=== PATIENT | female | born 1995 | race Two or more races ===

== ENCOUNTER 2016-06-09 17:18 | Emergency (ER) | payer OTHER ==
[2016-06-09 18:24] LABS: HCG,QUALITATIVE URINE NEGATIVE
[2016-06-09 19:13] LABS: URINE BILIRUBIN NEGATIVE (NEGATIVE); URINE BLOOD 3+ (NEGATIVE); URINE GLUCOSE (UA) NEGATIVE (NEGATIVE); URINE LEUKOCYTE ESTERASE NEGATIVE (NEGATIVE); URINE NITRITE NEGATIVE (NEGATIVE); URINE PROTEIN NEGATIVE (NEGATIVE); URINE UROBILINOGEN NORMAL (0-1 mg/dl)
[2016-06-09] MEDS ORDERED: PROCHLORPERAZINE 5 MG/ML 2 ML VIAL ONE (19:23)
[2016-06-09] MEDS ORDERED: LACTATED RINGERS 1,000 ML ONE (19:23)
[2016-06-09 19:24] LABS: URINE APPEARANCE HAZY; URINE COLOR YELLOW
[2016-06-09] MEDS ORDERED: MORPHINE SULFATE 4 MG/ML SYRINGE ONE (19:24)
[2016-06-09 19:28] LABS: URINE BACTERIA 0
[2016-06-09 20:05] LABS: ABSOLUTE NEUTROPHIL COUNT 3.7 K/mm3 (1.8-7.7); BASO % 0.3 % (0.2-1.0); EOS # 0.2 (0.0-0.5); EOS % 2.7 % (0.9-2.9); HEMATOCRIT 38.5 % (37.0-47.0); HEMOGLOBIN 12.7 gm/l (12.0-16.0); IMM NEUT% 0.1 % (0-1); LYMPH # 2.5 (1.0-4.8); LYMPH % 35.4 % (15-45); MEAN CELL VOLUME 90.6 fl (81.0-99.0); MEAN CORPUSCULAR HEMOGLOBIN 29.9 pg (27.0-31.0); MONO # 0.6 (0.0-0.8); MONO % 8.4 % (4-12); NEUT % 53.1 % (43-75); PLATELET COUNT 175 K/mm3 (130-400); RED CELL DISTRIBUTION WIDTH 13.2 % (11.5-14.5)
[2016-06-09 20:18] LABS: ALB/GLOB RATIO 1.5 (>1.0); ALBUMIN 4.3 gm/dL (3.5-5.7); CALCIUM 9.5 mg/dL (8.6-10.3)
[2016-06-09] MEDS: IOPAMIDOL 300 (61%) 100 ML VIAL IV ONE (20:34)
--- NOTE | 2016-06-09 20:51 | CT ---
EXAMINATION: Contrast enhanced CT scan of the abdomen and pelvis. CLINICAL INDICATION: Left lower quadrant pain. COMPARISON: None TECHNIQUE: Oral contrast: None Following uneventful administration of 100 mL of Isovue 300, intravenously axial images were acquired from just above the domes of the diaphragm to the iliac crest. A CT scan of the pelvis was also obtained from the iliac crest to the initial tuberosities. Stacked axial, sagittal, and coronal images were reviewed. Findings: Abdomen CT: (Contrast-enhanced): The lung bases are clear and are without mass or pleural effusion. The liver is unremarkable. The gallbladder is within normal limits. There is no evidence of biliary obstruction. The spleen size and attenuation are within normal limits. The pancreas is normal in size and contours. No inflammatory stranding is identified. The pancreatic duct is unremarkable. The adrenals are unremarkable. The kidneys are without mass or hydronephrosis. No nephrolithiasis is identified. The abdominal aorta unremarkable. There is no retroperitoneal adenopathy identified. The stomach is unremarkable. The visualized segments of small and large bowel are within normal limits. The osseous structures exhibit no displaced fracture. No lytic or blastic lesions are identified. Pelvic CT: (Contrast -enhanced): The distal ureters and bladder are unremarkable. The uterus is unremarkable. The adnexa are unremarkable for age. No worrisome adnexal masses are identified. No adenopathy is identified. Small amount of nonspecific fluid is noted within the pelvis. This most likely is physiologic. The distal abdominal aorta and iliac vessels are within normal limits. The visualized segments of small and large bowel are unremarkable. Patient is apparent status post prior appendectomy. Suture lines are noted near the cecum. No displaced fractures are identified. There are no gross osteolytic or blastic lesions. The overlying soft tissues are unremarkable. IMPRESSION: 1. No evidence of acute left lower quadrant/pelvic pathology. 2. No evidence of acute inflammatory or obstructive process involving the abdomen or pelvis. The findings were uploaded to the electronic medical record for review at approximately 8:53 PM 06/09/2016
[2016-06-09] MEDS ORDERED: NITROFURANTOIN/NITROFURAN MAC 100 MG CAPSULE ONE (21:28)
== END 2016-06-09 21:50 | disposition home or self-care (01) ==
LOC: ED 17:18
DX: N39.0 Urinary tract infection, site not specified (principal)
CPT/HCPCS: 83690; 81025; 85025; 80053; 81001; 74177; 96375; 99284 ×2; 96374; 96361; J0780; A9270; J2270; J7120; Q9967